=== PATIENT | female | born 1980 | race Caucasian/White ===

== ENCOUNTER 2020-02-09 09:47 | Emergency (ER) | payer OTHER, SELFPAY ==
[2020-02-09 10:06] VITALS: BP 136/90; PULSE 77; RESP 18; TEMP 36.7; O2SAT 99; BMI 35.7
--- NOTE | 2020-02-09 10:30 | HMH.EDUTC ---
[facility] [place] Impression: Exposure to COVID-19 virus, Encounter for laboratory testing for COVID-19 virus Disposition: Home, Self-Care Condition on Discharge: Good Instructions: Preventing the Spread of Coronavirus Discharge Instructions Additional Instructions: *Monitor Temp, Over the counter Motrin or Tylenol as directed/as needed Tylenol every 4 hours and Motrin every 6 hours (as long as your family doctor has told you that you can take it) for fever or pain. and straight to ER if unable to lower temp less than 101.0 after medication given *Warm salt water gargles may help to soothe the throat *Throat Lozenges *Warm fluids like tea with honey may help to soothe the throat *Sleep elevated *Humidifier/Vaporizer Follow up IMMEDIATELY for new or worsening symptoms or no Noticeable improvement over the next 48-72 hours. 911 for difficulty breathing or swallowing You was tested for today for COVID19 your test result should be back in the next 24-48 hours, you may call to the [facility] tomorrow to see if your test results are back and the result [phone] You was given a handout with instructions for Self Quarantine and Self isolation for while you wait on test results and what to do if they are positive If you are positive the Health Dept will be contacting you also Referrals: Tricia Oreilly APRN [Primary Care Provider] - As needed Forms: Work/School Release Time of Disposition: 10:33 Medical Decision Making - Neno Inquiry Pt receiving controlled substance: No Neno was queried for this patient: No Vital Signs: 02/09/20 10:06 Temperature 98.0 F Temperature Source Oral Pulse Rate [Radial] 77 Respiratory Rate 18 Blood Pressure [Right Arm] 136/90 Blood Pressure Mean [Right Arm] 105 Blood Pressure Source [Right Arm] Automatic Cuff Blood Pressure Position [Right Arm] Sitting 02 Sat by Pulse Oximetry 99 Oxygen Delivery Method Room Air Orders (Tests/Meds): ORDERS Category Date Time Status Covid-19 Nasal PCR ([facility]) Routine Lab 02/09/20 10:00 [place] [facility] [place] - General Stated complaint: covid exposure Time Seen by Provider: 02/09/20 10:31 Mode of Arrival: Ambulatory Source of Information: Patient Limitations: No Limitations Description of Symptoms (Recalled from Triage Doc. 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 and wanted to get tested to be safe Denies any symtpoms - Related Data Allergies Allergy/AdvReac Type Severity Reaction Status Date / Time From Hydromorphone HCl Allergy Mild NA-HALLUCIN Uncoded 03/11/17 15:06 ATIONS - Worker's Comp Is this a Worker's Comp case?: No [facility] History - Hepatitis A Screen Drug use history?: No High risk sexual behaviors?: No History of sexually transmitted infection?: No Currently employed?: No Childcare worker?: No Do you have indoor plumbing?: Yes Do you have electricity?: Yes Attestation statement:: This patient has been screened for Hepatitis A risk factors. I have reviewed the patient's past medical history: Yes - Social History Alcohol Intake: never Occupational Status: other Housing: house ROS Obtained: Yes All systems reviewed & no additional complaints, Yes Systems reviewed as appropriate & no additional complaints - Constitutional Constitutional: Reports system reviewed and no additional complaints, except as docu, Denies body ache, Denies chills, Denies fever(s), Denies headache(s) - ENT Ears, Nose, Mouth, and Throat: Reports system reviewed and no additional complaints, except as docu, Denies otalgia, Denies s
[2020-02-09 10:47] VITALS: BP 136/90; PULSE 77; RESP 18; TEMP 36.7; O2SAT 99
== END 2020-02-09 10:47 | disposition home or self-care (01) ==
PROVIDERS: Emergency Provider Nurse Practitioner; PCP Nurse Practitioner
DX: Z20.828 Contact with and (suspected) exposure to other viral communicable diseases (principal)
CPT/HCPCS: 99201; U0003

== ENCOUNTER 2020-11-19 09:09 | Emergency (ER) | payer OTHER, SELFPAY ==
[2020-11-19 09:51] VITALS: BP 130/75; PULSE 81; RESP 14; TEMP 36.6; O2SAT 98; BMI 35.4
[2020-11-19 09:55] VITALS: BP 130/75; PULSE 81; RESP 14; TEMP 36.6
--- NOTE | 2020-11-19 09:59 | HMH.EDUTC ---
[facility] [place] Clinical Impression: Exposure to COVID-19 virus Disposition: Home, Self-Care Condition on Discharge: Good Instructions: Preventing the Spread of Coronavirus Discharge Instructions Additional Instructions: You have been tested for COVID19. Please isolate as if you are positive until test results received. Prescriptions: Albuterol Sulfate [Albuterol Sulfate Hfa] 2 puffs IH Q4HP PRN 30 Days #1 each PRN Reason: Shortness Of Breath Transmission Status: Pending to [id number] predniSONE [Prednisone 20mg Tab] 20 mg PO BID 5 Days #10 tab Transmission Status: Pending to [id number] Azithromycin [Z-Tanner 250mg Tab] 250 mg PO DIRECTED #6 tab Transmission Status: Pending to [id number] Referrals: Niurka Mcqueen APRN [Primary Care Provider] - Time of Disposition: 10:11 Medical Decision Making - Neno Inquiry Pt receiving controlled substance: No Vital Signs: 11/19/20 09:51 11/19/20 09:55 Temperature 97.9 F 97.9 F Temperature Source Oral Pulse Rate 81 Pulse Rate [Left] 81 Respiratory Rate 14 14 Blood Pressure 130/75 Blood Pressure [Right Arm] 130/75 Blood Pressure Mean [Right Arm] 93 02 Sat by Pulse Oximetry 98 [facility] [place] - General Stated complaint: covid test/symptoms Time Seen by Provider: 11/19/20 09:59 Mode of Arrival: Ambulatory Source of Information: Patient Limitations: No Limitations Description of Symptoms (Recalled from Triage Doc. by RN): pt c/o runny nose and cough. HEENT Symptoms (Recalled from RN notes): Yes (runny nose) Resp Symptoms (Recalled from RN notes): Yes (cough) Skin Symptoms (Recalled from RN notes): No MS Symptoms (Recalled from RN notes): No Functional Status (Recalled from RN notes): na - History of Present Illness Provider Complaint: Runny nose, cough, congestion, back pain X 1 week. No fever. No ear pain or sore throat. No vomiting or diarrhea. Parents have COVID19. Feels a little short of breath. Onset (ago): week(s) (1) Location: chest Consistency: constant Relieving factors: none Exacerbating factors: none Associated symptoms: cough, malaise, shortness of breath Treatments prior to arrival: none - Related Data Previous Rx's Medication Instructions Recorded Albuterol Sulfate [Albuterol 2 puffs IH Q4HP PRN 30 Days #1 each 11/19/20 Sulfate Hfa] Azithromycin [Z-Tanner 250mg Tab] 250 mg PO DIRECTED #6 tab 11/19/20 predniSONE [Prednisone 20mg 20 mg PO BID 5 Days #10 tab 11/19/20 Tab] Allergies Allergy/AdvReac Type Severity Reaction Status Date / Time From Hydromorphone HCl Allergy Mild NA-HALLUCIN Uncoded 03/11/17 15:06 ATIONS - Worker's Comp Is this a Worker's Comp case?: No [facility] History - Hepatitis A Screen Drug use history?: No High risk sexual behaviors?: No History of sexually transmitted infection?: No Currently employed?: No Childcare worker?: No Do you have indoor plumbing?: Yes Do you have electricity?: Yes Attestation statement:: This patient has been screened for Hepatitis A risk factors. I have reviewed the patient's past medical history: Yes - Social History Alcohol Intake: never Occupational Status: other Housing: house ROS Obtained: Yes All systems reviewed & no additional complaints - Constitutional Constitutional: Reports body ache, Denies fever(s), Reports malaise - ENT Ears, Nose, Mouth, and Throat: Reports headache(s), Reports nasal congestion, Reports sinus pain - Respiratory Respiratory: Reports cough, Reports dyspnea Physical Exam - General General appearance: alert, in no apparent distress - Head Head exam: normocephalic - Eye Eye exam: Present: PERRL - ENT ENT exam: Present: normal oropharynx, TM's normal bilaterally - Chest Chest inspection: Present: normal inspection, symmetric chest wall rise - Respiratory Respiratory exam: Present: normal lung sounds bilaterally - Cardiovascular Cardiovascular exam: Pre
== END 2020-11-19 10:27 | disposition home or self-care (01) ==
PROVIDERS: Emergency Provider Physician Assistant; PCP Nurse Practitioner Family
DX: Z20.822 Contact with and (suspected) exposure to COVID-19 (principal); R05 Cough
CPT/HCPCS: 99202; G0463; U0003

== ENCOUNTER 2024-12-10 08:10 | Outpatient (CLI) | payer BC, SELFPAY ==
[2024-12-11 00:58] LABS: Hematocrit 42.1 % (37.0-47.0); Hemoglobin 13.4 g/dL (12.2-16.2); Immature Granulocytes % 0.1 %; Mean Corpuscular HGB Conc 31.8 g/dL (31.8-35.4); Mean Corpuscular Hemoglobin 29.1 pg (27.0-31.2); Mean Corpuscular Volume 91.3 fl (81-99); Nucleated Red Blood Cells % 0 %; Platelet Count 437 K/mm3 (142-424); Red Blood Count 4.61 M/mm3 (4.20-5.40); Red Cell Distribution Width-SD 44.0 fL; White Blood Count 7.8 K/mm3 (4.8-10.8)
[2024-12-11 01:18] LABS: Albumin Level 4.5 g/dl (3.5-5.0); Chloride 103 mmol/L (98-107); Sodium 139 mmol/L (136-145)
[2024-12-11 01:19] LABS: Potassium 4.7 mmoL/L (3.5-5.1)
[2024-12-11 01:21] LABS: Alanine Aminotransferase 22 U/L (12-78); Albumin/Globulin Ratio 1.6 (1.1-1.8); Anion Gap 16.7 mEq/L (5-15); Aspartate Amino Transferase 30 U/L (14-36); Blood Urea Nitrogen 16 mg/dl (7-17); Carbon Dioxide 24 mmol/L (22.0-30.0); Cholesterol 164 mg/dl (140-200); Creatinine,Serum 0.70 mg/dl (0.52-1.04); Estimated Glomerular Filt Rate 90 ml/min (>60); GFR (African American) 109 ML/MIN (>60); Globulin 2.9 g/dL (1.3-3.2); Total Protein,Serum 7.4 g/dl (6.3-8.2); Triglycerides 46 mg/dl (30-150)
[2024-12-11 01:22] LABS: Alkaline Phosphatase 64 U/L (38-126); Bilirubin,Total 0.7 mg/dl (0.2-1.3); Calcium 9.8 mg/dl (8.4-10.2); Glucose 102 mg/dl (74-100); HDL Cholesterol 51 mg/dl (40-60)
[2024-12-11 01:53] LABS: Thyroid Stimulating Hormone 1.01 uIU/mL (0.465-4.68)
[2024-12-11 02:11] LABS: Hepatitis C Ab Qual. W/ RFX NEGATIVE (Negative)
[2024-12-12 08:15] LABS: Hepatitis B Surface Antigen Negative (Negative)
== END 2024-12-10 23:59 | disposition home or self-care (01) ==
LOC: LAB.DROPOF 12-13 09:56
PROVIDERS: Nurse Practitioner Family; PCP Family Medicine; Visit Provider Family Medicine
DX: F41.9 Anxiety disorder, unspecified (principal); F32.A Depression, unspecified; R53.83 Other fatigue; Z11.4 Encounter for screening for human immunodeficiency virus [HIV]; Z11.59 Encounter for screening for other viral diseases
CPT/HCPCS: 80053; 80061; 84443; 85025; 86803; 87340; 87389

== ENCOUNTER 2024-12-11 00:15 | Outpatient (CLI) | payer BC, SELFPAY | END 2024-12-11 23:59 | disposition home or self-care (01) | LOC: LAB 00:17 | PROVIDERS: PCP Family Medicine; Visit Provider Family Medicine | DX: F41.8 Other specified anxiety disorders (principal); R53.83 Other fatigue ==

== ENCOUNTER 2024-12-11 00:20 | Outpatient (CLI) | payer BC, SELFPAY | END 2024-12-11 23:59 | disposition home or self-care (01) | LOC: LAB 00:21 | PROVIDERS: PCP Family Medicine; Visit Provider Nurse Practitioner Family | DX: F41.9 Anxiety disorder, unspecified (principal); F32.A Depression, unspecified; R53.83 Other fatigue; Z11.4 Encounter for screening for human immunodeficiency virus [HIV]; Z11.59 Encounter for screening for other viral diseases | CPT/HCPCS: 80053; 80061; 84443; 85025; 86803; 87340; 87389 ==